=== PATIENT | male | born 1980 | race African-American/Black ===

== ENCOUNTER 2018-04-30 16:27 | Emergency (ER) | payer BC | END 2018-04-30 19:05 | disposition left against medical advice (07) | LOC: ER 16:27 | DX: Z53.21 Procedure and treatment not carried out due to patient leaving prior to being seen by health care provider (principal) ==

== ENCOUNTER 2018-05-01 07:08 | Emergency (ER) | payer BC ==
[~2018-05-01] VITALS: Ht 188 cm; Wt 83.0 kg
[2018-05-01 10:04] VITALS: BP 122/88
== END 2018-05-01 10:09 | disposition home or self-care (01) ==
LOC: ER 07:08
DX: M25.511 Pain in right shoulder (principal); R51 Headache; J45.909 Unspecified asthma, uncomplicated; F12.10 Cannabis abuse, uncomplicated; Z87.891 Personal history of nicotine dependence; Z90.89 Acquired absence of other organs
CPT/HCPCS: 99281

== ENCOUNTER 2018-07-03 23:44 | Emergency (ER) | payer BC ==
[~2018-07-03] VITALS: Ht 188 cm; Wt 86.0 kg
[2018-07-04] MEDS ORDERED: IBUPROFEN 600MG TABLET PO ONE (00:30)
[2018-07-04 00:39] VITALS: BP 131/82
[2018-07-04 00:48] LABS: CLARITY URINE CLEAR (CLEAR); COLOR URINE YELLOW (YELLOW); KETONES URINE NEGATIVE (NEGATIVE); LEUKOCYTE ESTERASE URINE NEGATIVE (NEGATIVE); NITRITE URINE NEGATIVE (NEGATIVE); OCCULT BLOOD URINE NEGATIVE (NEGATIVE); PH URINE 5.5 (4.5-8.0); PROTEIN URINE NEGATIVE (NEGATIVE); SPECIFIC GRAVITY URINE 1.027 (1.005-1.030); UROBILINOGEN URINE 0.2 E.U./dL (0.2-1.0)
== END 2018-07-04 01:19 | disposition home or self-care (01) ==
LOC: ER 23:44
DX: R30.0 Dysuria (principal); J45.909 Unspecified asthma, uncomplicated; F12.10 Cannabis abuse, uncomplicated; Z90.89 Acquired absence of other organs
CPT/HCPCS: 99283